=== PATIENT | male | born 1960 | race Caucasian/White ===

== ENCOUNTER → 2024-05-28 | Outpatient (CLI) | payer OTHER ==
[~2024-05-28] MED LIST: ATENOLOL; Atenolol50 MG PO; FAMO20 PO; LOSA50 PO
== END | disposition home or self-care (01) ==
LOC: LAB SHORT 12:03 → LAB 12:03
DX: L30.8 Other specified dermatitis (principal)
CPT/HCPCS: 88305; 88312